=== PATIENT | male | born 1950 | race Caucasian/White ===

== ENCOUNTER 2017-01-25 10:04 | Emergency (ER) | payer BC ==
--- NOTE | 2017-01-25 12:12 | UC ---
Respiratory Complaint HPI - HPI Summary HPI Summary: Patient has had a few weeks of cough and ratteling in his chest, some SOB with exertion. denies fever. has had some sinus pressure and ear pain, but not bad - History of Current Complaint Chief Complaint: UCRespiratory Stated Complaint: EAR,COUGH,SINUS COMPLAINT Time Seen by Provider: 01/25/17 11:45 Hx Obtained From: Patient Onset/Duration: Gradual Onset, Lasting Weeks Timing: Constant Severity Initially: Mild Severity Currently: Moderate Pain Intensity: 6 Pain Scale Used: 0-10 Numeric Character: Cough: Productive Aggravating Factors: Exertion, Deep Breaths, Recumbent Position Alleviating Factors: Nothing Associated Signs And Symptoms: Positive: Dyspnea, Wheezing, URI, Nasal Congestion, Sinus Discomfort - Risk Factors Pulmonary Embolism Risk Factors: Negative - Allergies/Home Medications Allergies/Adverse Reactions: Allergies Allergy/AdvReac Type Severity Reaction Status Date / Time Bee Venom Allergy Anaphylatic Verified 01/25/17 11:28 Shock Penicillins Allergy Edema Verified 01/25/17 11:28 SHRIMP Allergy Hives Uncoded 01/25/17 11:28 Home Medications: Home Medications Hydrocodone-Acetaminophen [Vicodin 5-300 mg] 1 tab PO Q2HR PRN 01/25/17 [ History Confirmed 01/25/17] Simvastatin [Zocor 40 MG (NF)] 40 mg PO QPM 01/25/17 [History Confirmed 01/25/17 ] Zicam Tab 1 tab PO Q3HR PRN 01/25/17 [History Confirmed 01/25/17] PMH/Surg Hx/FS Hx/Imm Hx Previously Healthy: Yes Endocrine History Of: Denies: Diabetes Cardiovascular History Of: Denies: Hypertension, Pacemaker/ICD GI/ History Of: Denies: Renal Disease - Surgical History Surgical History: Yes Surgery Procedure, Year, and Place: HERNIA. UNDESCENDING TESTICLES - Family History Known Family History: Positive: Hypertension, Other - CA skin - Social History Alcohol Use: Weekly Substance Use Type: None Smoking Status (MU): Former Smoker Review of Systems Constitutional: Negative Skin: Negative Eyes: Negative ENT: Ear Ache, Nasal Discharge Respiratory: Shortness Of Breath, Cough Cardiovascular: Negative Gastrointestinal: Negative Genitourinary: Negative Motor: Negative Neurovascular: Negative Musculoskeletal: Negative Neurological: Negative Psychological: Negative All Other Systems Reviewed And Are Negative: Yes Physical Exam Triage Information Reviewed: Yes Appearance: Well-Appearing, Well-Nourished, Ill-Appearing Vital Signs: Initial Vital Signs Temp 98.2 F 01/25/17 11:21 Pulse 66 01/25/17 11:21 Resp 18 01/25/17 11:21 BP 143/85 01/25/17 11:21 Pulse Ox 98 01/25/17 11:21 Eye Exam: Normal Eyes: Positive: Conjunctiva Clear ENT Exam: Normal ENT: Positive: Pharyngeal erythema, Nasal congestion, TM bulging Dental Exam: Normal Neck exam: Normal Respiratory: Positive: Chest non-tender, No accessory muscle use, Respiratory distress, Rhonchi, Wheezing, Inspiration Cardiovascular Exam: Normal Cardiovascular: Positive: RRR, No Murmur, Pulses Normal Abdominal Exam: Normal Abdomen Description: Positive: Nontender, No Organomegaly, Soft Bowel Sounds: Positive: Present Musculoskeletal Exam: Normal Musculoskeletal: Positive: Strength Intact, ROM Intact Neurological Exam: Normal Neurological: Positive: Alert, Muscle Tone Normal Psychological Exam: Normal Skin Exam: Normal UC Diagnostic Evaluation - Laboratory O2 Sat by Pulse Oximetry: 98 Respiratory Course/Dx - Course Course Of Treatment: hx obtained, exam performed, medication prescribed, for bronchitis - Differential Dx/Diagnosis Differential Diagnosis/HQI/PQRI: Asthma, Bronchitis, Influenza, Laryngitis, Sinusitis Provider Diagnoses: Bronchitis. sinusitis Discharge - Discharge Plan Condition: Stable Disposition: HOME Patient Education Materials: Acute Bronchitis (ED) Additional Instructions: Take the medication as prescribed. Increase your fluid intake and get plenty of rest.
[2017-01-25 12:32] VITALS: BP 140/91
== END 2017-01-25 12:31 | disposition home or self-care (01) ==
LOC: UCCORT 10:04
DX: J40 Bronchitis, not specified as acute or chronic (principal); J32.9 Chronic sinusitis, unspecified; R03.0 Elevated blood-pressure reading, without diagnosis of hypertension; Z88.0 Allergy status to penicillin; Z87.891 Personal history of nicotine dependence
CPT/HCPCS: 99212; G0463